=== PATIENT | male | born 1960 | race Caucasian/White ===

== ENCOUNTER 2017-08-09 01:44 | Inpatient (IN) | payer MEDICAID, OTHER ==
[~2017-08-09] VITALS: Ht 172.7 cm; Wt 76.7 kg
--- NOTE | 2017-08-09 01:45 | NUR ---
PT BIB [facility] WITH A C/O MIDSTERNAL CP THAT LASTED SECONDS. PT DENIES PAIN NOW. PT WAS PLACED ON THE MONITOR AND CONTINUOUS PULSE OX. DR. WHALEN IS AT THE BEDSIDE SPEAKING TO THE PT. PT IS AA&O X4.
[2017-08-09] MEDS ORDERED: NITROGLYCERIN PACKET 1 GM PACKET TD ONE (02:00)
[2017-08-09] MEDS ORDERED: NITROGLYCERIN PACKET 1 GM PACKET ONE (02:01)
[2017-08-09 02:10] LABS: BASOPHILS # (AUTO) 0.1 /CMM (0.0-0.2); BASOPHILS % (AUTO) 1.3 % (0.0-2.0); EOSINOPHILS # (AUTO) 0.3 /CMM (0.0-0.7); EOSINOPHILS % (AUTO) 2.7 % (0.0-6.0); HEMATOCRIT 45 % (39-51); LYMPHOCYTES # (AUTO) 4.1 /CMM (0.8-4.8); LYMPHOCYTES % (AUTO) 37.7 % (20.0-44.0); MEAN CORPUSCULAR HEMOGLOBIN 29 PG (26.0-33.0); MEAN CORPUSCULAR HGB CONC 33 g/dl (31.0-36.0); MEAN CORPUSCULAR VOLUME 86 fL (80-96); MONOCYTES # (AUTO) 0.8 /CMM (0.1-1.30); MONOCYTES % (AUTO) 7.2 % (2.0-12.0); NEUTROPHILS # (AUTO) 5.6 /CMM (1.8-8.9); NEUTROPHILS % (AUTO) 51.1 % (43.0-81.0); PLATELET COUNT (AUTO) 252 /CMM (150-450); RDW COEFFICIENT OF VARIATION 14.6 (11.5-15.0); RED BLOOD CELL COUNT(AUTO) 5.27 MIL/uL (4.5-6.0)
[2017-08-09] MEDS ORDERED: CLOP75TA2 PO (02:23)
[2017-08-09] MEDS ORDERED: ROSU10TA PO (02:23)
[2017-08-09] MEDS ORDERED: CARV25TA2 PO (02:23)
[2017-08-09] MEDS ORDERED: ATOR10TA PO (02:23)
[2017-08-09] MEDS ORDERED: BENA20TA2 PO (02:23)
[2017-08-09] MEDS ORDERED: RANO500T3 PO (02:23)
[2017-08-09] MEDS ORDERED: ASPI81TA2 PO (02:23)
[2017-08-09 02:24] LABS: CALCIUM, SERUM 9.2 mg/dL (8.5-10.1); CARBON DIOXIDE 28 mmol/L (21-32); CHLORIDE 104 mmol/L (98-107); CREATININE 1.2 mg/dL (0.6-1.3); GLUCOSE 112 mg/dL (74-106); SODIUM SERUM 141 mmol/L (136-145); UREA NITROGEN, BLOOD 17 mg/dL (7-18)
[2017-08-09 02:29] LABS: D-DIMER 0.36 mg/L(FEU (0.17-0.50); INR 0.93 (0.87-1.13); PROTHROMBIN TIME 9.7 SECS (9.5-12.7)
[2017-08-09] MEDS ORDERED: ACETAMINOPHEN ES 500 MG TABLET PO ONE (02:30)
[2017-08-09 02:32] LABS: TROPONIN I < 0.017 ng/mL (0.00-0.056)
[2017-08-09] MEDS ORDERED: ACETAMINOPHEN ES 500 MG TABLET ONE (02:32)
[2017-08-09 02:37] LABS: ALANINE AMINOTRANSFERASE 50 U/L (12-78); ALBUMIN 3.7 g/dL (3.4-5.0); ALKALINE PHOSPHATASE 80 U/L (46-116); ASPARTATE AMINOTRANSFERASE 26 U/L (15-37); B-TYPE NATRIURETIC PEPTIDE 88 PG/ML (0-125); BILIRUBIN,TOTAL 0.2 mg/dL (0.2-1.0); TOTAL PROTEIN, SERUM 7.2 g/dL (6.4-8.2)
--- NOTE | 2017-08-09 02:37 | NUR ---
PT REFUSED TYLENOL. PT DENIES HEADACHE
--- NOTE | 2017-08-09 02:40 | NUR ---
PT USED THE URINAL AND APPROX 300 ML PALE YELLOW URINE OUTPUT NOTED.
--- NOTE | 2017-08-09 03:02 | NUR ---
PT APPEARS TO BE RESTING COMFORTABLY WITH NO S/S OF PAIN OR DISTRESS. PT'S FAMILY IS AT THE BEDSIDE.
--- NOTE | 2017-08-09 04:14 | NUR ---
CALLING REPORT TO TELE NURSE.
--- NOTE | 2017-08-09 04:19 | NUR ---
REPORT GIVEN TO SMILEY DE LA PAZ
--- NOTE | 2017-08-09 04:30 | NUR ---
SETTER OUT INITIAL NOTES PT WAS TRANSFERRED UP BY ER VIA [facility]. PT IS PLEASANT, A/O X4. NO SIGNS OF SOB OR DISTRESS. DENIES ANY CHEST PAIN AT THIS TIME. NITRO PATCH ON FROM ER. IV ACCESS IS INTACT AND PATENT. BED IS IN LOW AND LOCKED POSITION, CALL LIGHT WITHIN REACH. WILL CONTINUE TO MONITOR.
[2017-08-09] MEDS ORDERED: IV PREMIX D5 1/2NS + KCL 1,000 ML IV PRN (05:00)
[2017-08-09 05:09] VITALS: BP 117/70
[2017-08-09] MEDS ORDERED: IV PREMIX D5 1/2NS + KCL 1,000 ML IV ONE (05:26)
[2017-08-09 07:10] LABS: BASOPHILS # (AUTO) 0.1 /CMM (0.0-0.2); BASOPHILS % (AUTO) 0.8 % (0.0-2.0); EOSINOPHILS # (AUTO) 0.3 /CMM (0.0-0.7); EOSINOPHILS % (AUTO) 2.8 % (0.0-6.0); HEMATOCRIT 44 % (39-51); HEMOGLOBIN 14.6 g/dL (13.5-17.5); LYMPHOCYTES # (AUTO) 4.2 /CMM (0.8-4.8); LYMPHOCYTES % (AUTO) 36.3 % (20.0-44.0); MEAN CORPUSCULAR HEMOGLOBIN 28 PG (26.0-33.0); MEAN CORPUSCULAR HGB CONC 33 g/dl (31.0-36.0); MEAN CORPUSCULAR VOLUME 85 fL (80-96); MONOCYTES # (AUTO) 0.7 /CMM (0.1-1.30); MONOCYTES % (AUTO) 5.8 % (2.0-12.0); NEUTROPHILS # (AUTO) 6.2 /CMM (1.8-8.9); NEUTROPHILS % (AUTO) 54.3 % (43.0-81.0); PLATELET COUNT (AUTO) 240 /CMM (150-450); RDW COEFFICIENT OF VARIATION 14.6 (11.5-15.0); RED BLOOD CELL COUNT(AUTO) 5.14 MIL/uL (4.5-6.0); WHITE BLOOD COUNT (AUTO) 11.5 K/uL (4.3-11.0)
[2017-08-09 07:17] LABS: CALCIUM, SERUM 9.1 mg/dL (8.5-10.1); CREATININE 1.1 mg/dL (0.6-1.3); POTASSIUM 4.5 mmol/L (3.5-5.1)
[2017-08-09] MEDS ORDERED: PANTOPRAZOLE 40 MG TABLET.DR PO SCH (07:30)
--- NOTE | 2017-08-09 07:30 | NUR ---
PT RECEIVED RESTING COMFORTABLY IN BED WITH EYES CLOSED. NO S/S OR C/O PAIN OR DISTRESS NOTED. SIDE RAILS UP X2, CALL LIGHT LEFT WITHIN REACH. WILL CONTINUE PLAN OF CARE.
--- NOTE | 2017-08-09 07:38 | NUR ---
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 NO SIGNS OF SOB OR DISTRESS. FLUIDS INFUSING. NPO FOR CARDIAC CONSULT. WILL ENDORSE TO DAYSHIFT
[2017-08-09 08:00] VITALS: BP 106/68
[2017-08-09] MEDS ORDERED: REGADENOSON 0.4 MG/5 ML DISP.SYRIN IVP ONE (08:30)
[2017-08-09 09:00] VITALS: BP 117/72
[2017-08-09] MEDS ORDERED: Medication Not On Formulary EA (Rosuvastatin Calcium (Crestor) 1 TAB) PO SCH (09:00)
[2017-08-09] MEDS ORDERED: CLOPIDOGREL BISULFATE 75 MG TABLET PO SCH (09:00)
[2017-08-09] MEDS ORDERED: CARVEDILOL 12.5 MG TABLET PO SCH (09:00)
[2017-08-09] MEDS ORDERED: ASPIRIN 81 MG TAB.CHEW PO SCH (09:00)
[2017-08-09] MEDS ORDERED: BENAZEPRIL HCL 20 MG TABLET PO SCH (09:00)
[2017-08-09] MEDS ORDERED: Ranolazine (Ranexa) PO SCH (11:30)
--- NOTE | 2017-08-09 14:30 | NUR ---
DISCHARGE INSTRUCTIONS GIVEN ORDERED. ENCOURAGED TO FOLLOW UP WITH PMD INSTRUCTED. ALL QUESTIONS AND CONCERNS ADDRESSED. PATIENT VERBALIZED UNDERSTANDING. MEDICATION RECONCILIATION FORM COMPLETED AND COPY GIVEN TO PATIENT. IV REMOVED WITH CATHETER INTACT, PRESSURE DRESSING APPLIED. TELE UNIT RETURNED TO STATION. PATIENT TAKEN TAKEN TO VEHICLE WITH ALL PERSONAL BELONGINGS, ACCOMPANIED BY STAFF AND FAMILY MEMBER. NO DISTRESS NOTED AT TIME OF DEPARTURE.
[2017-08-09] MEDS ORDERED: ATORVASTATIN 10 MG TABLET PO SCH (18:00)
== END 2017-08-09 14:30 | disposition home or self-care (01) | DRG 243 ==
LOC: ER 01:45 → TELE 04:17 → MED 11:38
PROVIDERS: ADMIT Internal Medicine; ATTEND Internal Medicine
DX: K21.9 Gastro-esophageal reflux disease without esophagitis (principal); I10 Essential (primary) hypertension; I25.10 Atherosclerotic heart disease of native coronary artery without angina pectoris; E78.5 Hyperlipidemia, unspecified; F17.210 Nicotine dependence, cigarettes, uncomplicated; Z98.61 Coronary angioplasty status; Z82.49 Family history of ischemic heart disease and other diseases of the circulatory system
CPT/HCPCS: 36415; 71010-TC; 80048-TC; 80061-TC; 80076-TC; 83880; 84484-TC; 85025-TC; 85378-TC; 85730-TC; 87081-TC; 93307-TC; A9502; J2785; J3490

== ENCOUNTER 2017-08-15 08:27 | Emergency (ER) | payer MEDICAID ==
[~2017-08-15] VITALS: Ht 172.7 cm; Wt 77.1 kg
[~2017-08-15 08:27] MED LIST: ASPI81TA2 PO; ATOR10TA PO; BENA20TA2 PO; CARV25TA2 PO; CLOP75TA2 PO; RANO500T3 PO
--- NOTE | 2017-08-15 08:39 | NUR ---
AAOX3, CAME TO ER C/O GENERALIZED WEAKNESS AND DIZZINESS WHILE DRIVING. SKIN IS WARM AND DRY. RESP IS EVEN AND UNLABORED WITH NAD NOTED. PLACED ON MONITOR. WILL CONTINUOUSLY MONITOR THE PATIENT. DR MATTHEWS AT BS FOR EVAL.
--- NOTE | 2017-08-15 08:42 | NUR ---
Patient discharged to home in stable condition. Written and verbal after care instructions given. Patient verbalizes understanding of instruction.
[2017-08-15 08:44] VITALS: BP 149/101
== END 2017-08-15 08:45 | disposition home or self-care (01) ==
LOC: ER 08:28
DX: I10 Essential (primary) hypertension (principal); F17.210 Nicotine dependence, cigarettes, uncomplicated; Z79.82 Long term (current) use of aspirin; Z95.9 Presence of cardiac and vascular implant and graft, unspecified
CPT/HCPCS: A4606; Z7502; Z7610